=== PATIENT | male | born 1980 | race Two or more races ===

== ENCOUNTER 2021-07-11 01:09 | Emergency (ER) | payer MEDICAID ==
[~2021-07-11] VITALS: Ht 185.4 cm; Wt 154.2 kg
[2021-07-11 01:55] LABS: Basophils # (auto) 0.2 10 ^3/uL (0-0.2); Basophils % (auto) 1.5 % (0.0-2.0); Eosinophils # (auto) 0.5 10 ^3/uL (0-0.8); Eosinophils % (auto) 4.1 % (0.0-7.0); Hematocrit 40.6 % (41.0-53.0); Hemoglobin 13.7 g/dL (13.5-17.5); Lymphocytes # (auto) 2.5 10 ^3/uL (0.4-5.4); Lymphocytes % (auto) 20.5 % (10.0-50.0); Mean Corpuscular Hemoglobin 29.2 pg (28.0-32.0); Mean Corpuscular Hgb Conc. 33.8 g/dL (32.0-36.0); Mean Corpuscular Volume 86.3 fL (80.0-100.0); Monocytes # (auto) 0.8 10 ^3/uL (0-1.3); Monocytes % (auto) 6.2 % (0.0-12.0); Neutrophils # (auto) 8.3 10 ^3/uL (1.6-8.6); Neutrophils % (auto) 67.7 % (37.0-80.0); Red Cell Distribution Width 14.9 % (11.8-14.3); White Blood Cell 12.3 10^3/uL (4.4-10.8)
[2021-07-11 02:21] LABS: Albumin 3.5 g/dL (3.4-5.0); BUN/Creatinine Ratio 14.3; Calcium 9.2 mg/dL (8.5-10.1); Potassium 3.7 mmol/L (3.5-5.1)
[2021-07-11 02:24] LABS: Bilirubin, Total 0.2 mg/dL (0.2-1.0); Total Protein 7.7 g/dL (6.4-8.2)
[2021-07-11 04:05] VITALS: BP 136/95
== END 2021-07-11 04:07 | disposition home or self-care (01) ==
LOC: ER 01:09
DX: R10.12 Left upper quadrant pain (principal); I10 Essential (primary) hypertension
CPT/HCPCS: 36415; 80053; 83690; 85025

== ENCOUNTER 2023-10-17 02:55 | Emergency (ER) | payer MEDICAID ==
[~2023-10-17] VITALS: Ht 185.4 cm; Wt 181.8 kg
[2023-10-17 03:09] VITALS: BP 158/92; PULSE 100; RESP 18; O2SAT 94
[2023-10-17] MEDS ORDERED: AMOX875T4 PO (03:48)
== END 2023-10-17 04:02 | disposition home or self-care (01) ==
LOC: ER 02:55
DX: H66.92 Otitis media, unspecified, left ear (principal); I10 Essential (primary) hypertension